=== PATIENT | male | born 1960 | race Caucasian/White ===

== ENCOUNTER 2024-04-10 06:48 | Day surgery (SDC) | payer OTHER ==
[~2024-04-10] VITALS: Ht 175.3 cm; Wt 84.4 kg
[~2024-04-10 06:48] MED LIST: CALCIUM600 MG PO; FISH OIL1000 MG PO; GLUCOSAMINE SUL PO; Ondansetron 4 MG/2 ML VIAL IV PRN; PROBIOTICA100 Milli1 PO; [UNRECOGNIZED DRUG - OTHER]
[2024-04-10] MEDS ORDERED: LR 1,000 ML IV ONE (08:00)
[2024-04-10 08:24] VITALS: BP 138/77; PULSE 52; TEMP 98
[2024-04-10 09:10] VITALS: BP 91/70; PULSE 56; TEMP 98.1
[2024-04-10 09:25] VITALS: BP 107/74; PULSE 56
[2024-04-10 09:30] VITALS: BP 126/82; PULSE 54
--- NOTE | 2024-04-10 09:40 | NUR ---
0910 RETURNS TO ROOM 6 PER CART. AWAKE, ALERT. RESP UNLABORED. AMBULATES TO RECLINER WITH STANDBY ASSIST. DENIES NAUSEA OR ABD PAIN. VITAL SIGNS OBTAINED. CALL LIGHT AT SIDE. IN ROOM 0920 TOLERATES PO JUICE AND MUFFIN WITHOUT NAUSEA. DISCHARGE INSTRUCTIONS REVIEWED. PATIENT VERBALIZES UNDERSTANDING. COPY PROVIDED IN DISCHARGE FOLDER [id number] PARKS HERE TO VISIT WITH PATIENT
== END 2024-04-10 09:40 | disposition home or self-care (01) ==
LOC: SDCO 06:48
DX: K63.5 Polyp of colon (principal); K63.89 Other specified diseases of intestine; K62.89 Other specified diseases of anus and rectum; R19.4 Change in bowel habit; R19.12 Hyperactive bowel sounds; F45.8 Other somatoform disorders; Z86.010 Personal history of colon polyps; Z98.0 Intestinal bypass and anastomosis status; Z87.891 Personal history of nicotine dependence
CPT/HCPCS: J2704; J7120